=== PATIENT | male | born 1950 | race Caucasian/White ===

== ENCOUNTER 2017-09-14 21:03 | Emergency (ER) | payer MEDICARE ==
[~2017-09-14] VITALS: Ht 175.3 cm; Wt 101.2 kg
[~2017-09-14 21:03] MED LIST: ASPI81CH PO; Aspir-Trin325 MG PO; BLOOD GLUCOSE; CLOP75 PO; GABA300 PO; GLIP5 PO; LISI5 PO; METF500 PO; METO25 PO; Nitrostat0.4 MG SL; Simvastatin10 MG PO
== END 2017-09-14 21:58 | disposition left against medical advice (07) ==
LOC: ER 21:03
DX: Z53.21 Procedure and treatment not carried out due to patient leaving prior to being seen by health care provider (principal)

== ENCOUNTER 2020-11-18 11:39 | Emergency (ER) | payer MEDICARE ==
[~2020-11-18] VITALS: Ht 175.3 cm; Wt 93.9 kg
[~2020-11-18 11:39] MED LIST changes: -ASPI81CH PO; +Aspir 8181 MG PO
[2020-11-18 14:16] LABS: BASOPHILS ABSOLUTE AUTO 0.02 K/mm3 (0.00-0.23); BASOPHILS PERCENT AUTO 0 % (0-2); EOSINOPHILS PERCENT AUTO 0 % (0-6); Hematocrit 41.1 % (37.0-53.0); Hemoglobin 13.9 g/dL (13.5-17.5); IMMATURE GRAN ABSOLUTE AUTO 0.04 K/mm3 (0.00-0.10); IMMATURE GRAN PERCENT AUTO 1 % (0-1); LYMPHOCYTES ABSOLUTE AUTO 1.16 K/mm3 (0.84-5.20); LYMPHOCYTES PERCENT AUTO 16 % (21-46); MONOCYTES ABSOLUTE AUTO 0.36 K/mm3 (0.16-1.47); MONOCYTES PERCENT AUTO 5 % (4-13); Mean Corpuscular HGB Conc 33.8 g/dL (31.5-36.5); Mean Corpuscular Volume 86 fL (80-100); NEUTROPHILS ABSOLUTE AUTO 5.75 K/mm3 (1.96-9.15); NEUTROPHILS PERCENT AUTO 79 % (41-73); Platelet Count 168 K/mm3 (150-400); RDW Coefficient Variation 12.6 % (11.7-14.2); RDW Standard Deviation 39.5 fL (35.1-46.3); White Blood Cell Count 7.33 K/mm3 (4.00-11.30)
[2020-11-18 14:36] LABS: Alanine Aminotransfer (ALT/SGP 45 U/L (12-78); Albumin, Blood 3.2 g/dL (3.4-5.0); Albumin/Globulin Ratio 0.8 (0.8-1.8); Alk Phos 47 U/L (50-136); Anion Gap 9 mmol/L (6-16); Aspartate Aminotrans (AST/SGOT 44 U/L (12-37); Bilirubin, Total 0.7 mg/dL (0.1-1.0); Blood Urea Nitrogen 11 mg/dL (8-24); Bun/Creatinine Ratio 12.6 (12.0-20.0); CO2, Blood 25 mmol/L (21-32); Calcium, Blood 7.9 mg/dL (8.5-10.1); Chloride, Blood 96 mmol/L (98-108); Creatinine, Blood 0.87 mg/dL (0.60-1.20); Globulin, Blood 4.2 g/dL (2.2-4.0); Glomerular Filtration Rate >60 (60-); Glucose, Blood 285 mg/dL (70-99); Potassium, Blood 4.4 mmol/L (3.5-5.5); Sodium, Blood 130 mmol/L (136-145); Total Protein, Blood 7.4 g/dL (6.4-8.2)
[2020-11-18 14:40] LABS: Magnesium, Blood 1.7 mg/dL (1.6-2.4); Troponin I <0.015 ng/mL (0.000-0.040)
[2020-11-18] MEDS ORDERED: ONDA4ODT MM (15:07)
[2020-11-19] MEDS ORDERED: ATOR40TA PO (20:40)
[2020-11-19] MEDS ORDERED: GLIP10ER PO (20:40)
[2020-11-19] MEDS ORDERED: SITA100T2 PO (20:42)
== END 2020-11-18 16:00 | disposition home or self-care (01) ==
LOC: ER 11:39
PROVIDERS: Emergency Medicine; Student in an Organized Health Care Education/Training Program
DX: U07.1 COVID-19 (principal); E86.0 Dehydration; G47.33 Obstructive sleep apnea (adult) (pediatric); Z79.899 Other long term (current) drug therapy; Z79.84 Long term (current) use of oral hypoglycemic drugs; Z79.82 Long term (current) use of aspirin
CPT/HCPCS: 36415; 71045; 80053; 83735; 84484; 85025; 93005; 93010; 96374; 99284-25; J2405; J7030

== ENCOUNTER 2020-11-19 18:32 | Inpatient (IN) | payer MEDICARE ==
[~2020-11-19] VITALS: Ht 175.3 cm; Wt 93.2 kg
[~2020-11-19 18:32] MED LIST changes: +ONDA4ODT MM
[2020-11-19 19:12] LABS: Hematocrit 35.6 % (37.0-53.0); Mean Corpuscular HGB 28.6 pg (26.0-34.0); Mean Corpuscular HGB Conc 33.7 g/dL (31.5-36.5); Mean Corpuscular Volume 85 fL (80-100); Mean Platelet Volume 10.1 fL (9.1-12.4); Platelet Count 193 K/mm3 (150-400); RDW Standard Deviation 39.8 fL (35.1-46.3); Red Blood Cell Count 4.19 M/mm3 (4.30-5.90); White Blood Cell Count 9.55 K/mm3 (4.00-11.30)
[2020-11-19 19:36] LABS: BAND PERCENT MAN 1 % (0-8); BASOPHILS PERCENT MAN 0 % (0-2); EOSINOPHILS PERCENT MAN 0 % (0-6); LYMPHOCYTES % ATYPICAL MANUAL 2 % (0-0); LYMPHOCYTES ABSOLUTE MAN 1.52 K/mm3 (0.84-5.20); LYMPHOCYTES PERCENT MAN 14 % (21-46); MONOCYTES ABSOLUTE MAN 0.38 K/mm3 (0.16-1.47); MONOCYTES PERCENT MAN 4 % (4-13); NEUTROPHILS ABSOLUTE MAN 7.64 K/mm3 (1.96-9.15); SEG NEUTROPHILS PERCENT MAN 79 % (41-73); TOTAL CELLS COUNTED 100
[2020-11-19 19:40] LABS: Alanine Aminotransfer (ALT/SGP 36 U/L (12-78); Albumin, Blood 2.7 g/dL (3.4-5.0); Albumin/Globulin Ratio 0.7 (0.8-1.8); Alk Phos 38 U/L (50-136); Anion Gap 10 mmol/L (6-16); Aspartate Aminotrans (AST/SGOT 33 U/L (12-37); Bilirubin, Total 0.6 mg/dL (0.1-1.0); Blood Urea Nitrogen 15 mg/dL (8-24); Bun/Creatinine Ratio 16.2 (12.0-20.0); CO2, Blood 23 mmol/L (21-32); Calcium, Blood 7.9 mg/dL (8.5-10.1); Chloride, Blood 96 mmol/L (98-108); Creatinine, Blood 0.92 mg/dL (0.60-1.20); Globulin, Blood 3.7 g/dL (2.2-4.0); Glomerular Filtration Rate >60 (60-); Glucose, Blood 296 mg/dL (70-99); Sodium, Blood 129 mmol/L (136-145); Total Protein, Blood 6.4 g/dL (6.4-8.2)
[2020-11-19] MEDS ORDERED: ATOR40TA PO (20:40)
[2020-11-19] MEDS ORDERED: GLIP10ER PO (20:40)
[2020-11-19] MEDS ORDERED: SITA100T2 PO (20:42)
--- NOTE | 2020-11-19 23:50 | NUR ---
TRANSFER NOTE REPORT FROM ILDEFONSO POWERS RN. PT BROUGHT TO ROOM BY PEDRO ON 6L BY TANK. PT ORIENTED TO UNIT AND ROOM. CALL LIGHT WITHIN REACH. ISOLATION MAINTAINED.
[2020-11-20 05:21] LABS: Hematocrit 36.5 % (37.0-53.0); Hemoglobin 12.4 g/dL (13.5-17.5); Mean Corpuscular HGB 28.6 pg (26.0-34.0); Mean Corpuscular Volume 84 fL (80-100); Mean Platelet Volume 9.9 fL (9.1-12.4); Platelet Count 203 K/mm3 (150-400); RDW Coefficient Variation 12.6 % (11.7-14.2); RDW Standard Deviation 38.9 fL (35.1-46.3); Red Blood Cell Count 4.34 M/mm3 (4.30-5.90); White Blood Cell Count 8.99 K/mm3 (4.00-11.30)
[2020-11-20 05:41] LABS: Alanine Aminotransfer (ALT/SGP 38 U/L (12-78); Albumin, Blood 2.5 g/dL (3.4-5.0); Albumin/Globulin Ratio 0.6 (0.8-1.8); Alk Phos 40 U/L (50-136); Anion Gap 12 mmol/L (6-16); Aspartate Aminotrans (AST/SGOT 35 U/L (12-37); Bilirubin, Total 0.6 mg/dL (0.1-1.0); Blood Urea Nitrogen 17 mg/dL (8-24); Bun/Creatinine Ratio 20.8 (12.0-20.0); CO2, Blood 21 mmol/L (21-32); Chloride, Blood 97 mmol/L (98-108); Creatinine, Blood 0.82 mg/dL (0.60-1.20); Glomerular Filtration Rate >60 (60-); Glucose, Blood 328 mg/dL (70-99); Potassium, Blood 4.5 mmol/L (3.5-5.5); Sodium, Blood 130 mmol/L (136-145); Total Protein, Blood 6.5 g/dL (6.4-8.2)
--- NOTE | 2020-11-20 05:43 | NUR ---
SHIFT SUMMARY ADMITTED FOR HYPOXEMIA AND RESPIRATORY FAILURE SECONDARY TO COVID-19. PT IS FULL CODE. PT HAD A BLOOD SUGAR OF 398 ON ARRIVAL TO THE FLOOR. HOSPITALIST CONTACTED AT THAT TIME AND AN ORDER FOR ONE TIME MEDIUM CS HUMALOG OBTAINED. PT SATTING AT 80-83% ON 6L NC DURING SLEEP. PT REPORTS HX OF SLEEP APNEA SO RESPIRATORY CARE CONSULTED. PT PUT ON 13L BY OXIMIZER WITH SATURATION AT 86%. PT PLACED ON CPAP FOR THE REST OF THE NIGHT WITH IMPROVEMENT INTO THE 90S. REQUESTED CONTINUOUS BIOX. PT HAS NO COMPLAINTS OF SOB OR DISCOMFORT. PT RESTING AT THIS TIME.
--- NOTE | 2020-11-20 06:50 | NUR ---
RESPIRATORY PT REQUESTING TO BE TAKEN OFF CPAP SINCE HE IS DONE SLEEPING. RESPIRATORY THERAPIST WAS CONSULTED AND DUE TO PT'S LOW SATURATION AT NIGHT, IT WAS RECOMMENDED THAT HE CONTINUE TO WEAR CPAP MASK AND BE RE-EVALUATED BY DAY SHIFT RT.
[2020-11-20 07:06] LABS: BAND PERCENT MAN 9 % (0-8); BASOPHILS PERCENT MAN 0 % (0-2); EOSINOPHILS PERCENT MAN 0 % (0-6); LYMPHOCYTES ABSOLUTE MAN 0.53 K/mm3 (0.84-5.20); LYMPHOCYTES PERCENT MAN 6 % (21-46); MONOCYTES ABSOLUTE MAN 0.35 K/mm3 (0.16-1.47); MONOCYTES PERCENT MAN 4 % (4-13); NEUTROPHILS ABSOLUTE MAN 8.09 K/mm3 (1.96-9.15); SEG NEUTROPHILS PERCENT MAN 81 % (41-73); TOTAL CELLS COUNTED 100
--- NOTE | 2020-11-20 17:06 | NUR ---
SHIFT SUMMARY PT IS AOX4. PT DENIES PAIN, N/V, SOB. PT SATS GREATER THAN 90% ON 12 L VIA OXYMIZER. PT WEARS CPAP AT NIGHT. PT IS SBA IN ROOM. PT APPETITE IS GOOD. ENHANCED ISOLATION PRECUATIONS MAINTAINED T/O SHIFT. PT IS IN BED, CALL LIGHT IN REACH, BED IN LOW POSITION.
--- NOTE | 2020-11-20 22:04 | NUR ---
PT CBG OF 366. HOSPITALIST CONTACTED. PT TO BE GIVEN NIGHTLY SEMGLEE AND SUGAR CHECKED IN TWO HOURS.
--- NOTE | 2020-11-21 05:33 | NUR ---
STABLE ATTENDANT SUMMARY ADMITTED FOR SUPPORTIVE OXYGEN THERAPY DURING COVID. PT IS FULL CODE. PT HAS BEEN SLEEPING ON CPAP AND SATURATING AT 92-98%. NO COMPLAINTS DURING THIS SHIFT. ISOLATION MAINTAINED.
[2020-11-21 06:11] LABS: BASOPHILS ABSOLUTE AUTO 0.02 K/mm3 (0.00-0.23); BASOPHILS PERCENT AUTO 0 % (0-2); EOSINOPHILS PERCENT AUTO 0 % (0-6); Hematocrit 38.5 % (37.0-53.0); IMMATURE GRAN ABSOLUTE AUTO 0.13 K/mm3 (0.00-0.10); IMMATURE GRAN PERCENT AUTO 1 % (0-1); LYMPHOCYTES ABSOLUTE AUTO 1.19 K/mm3 (0.84-5.20); LYMPHOCYTES PERCENT AUTO 11 % (21-46); MONOCYTES ABSOLUTE AUTO 0.65 K/mm3 (0.16-1.47); MONOCYTES PERCENT AUTO 6 % (4-13); Mean Corpuscular HGB 28.3 pg (26.0-34.0); Mean Corpuscular HGB Conc 33.8 g/dL (31.5-36.5); Mean Corpuscular Volume 84 fL (80-100); Mean Platelet Volume 10.2 fL (9.1-12.4); NEUTROPHILS ABSOLUTE AUTO 9.18 K/mm3 (1.96-9.15); NEUTROPHILS PERCENT AUTO 82 % (41-73); Platelet Count 272 K/mm3 (150-400); RDW Coefficient Variation 12.5 % (11.7-14.2); RDW Standard Deviation 38.2 fL (35.1-46.3); Red Blood Cell Count 4.59 M/mm3 (4.30-5.90); White Blood Cell Count 11.17 K/mm3 (4.00-11.30)
[2020-11-21 06:50] LABS: Alanine Aminotransfer (ALT/SGP 35 U/L (12-78); Albumin, Blood 2.6 g/dL (3.4-5.0); Albumin/Globulin Ratio 0.6 (0.8-1.8); Alk Phos 43 U/L (50-136); Anion Gap 9 mmol/L (6-16); Aspartate Aminotrans (AST/SGOT 38 U/L (12-37); Bilirubin, Total 0.5 mg/dL (0.1-1.0); Blood Urea Nitrogen 23 mg/dL (8-24); Bun/Creatinine Ratio 30.5 (12.0-20.0); CO2, Blood 24 mmol/L (21-32); Calcium, Blood 8.1 mg/dL (8.5-10.1); Chloride, Blood 98 mmol/L (98-108); Creatinine, Blood 0.75 mg/dL (0.60-1.20); Globulin, Blood 4.2 g/dL (2.2-4.0); Glomerular Filtration Rate >60 (60-); Glucose, Blood 295 mg/dL (70-99); Potassium, Blood 4.6 mmol/L (3.5-5.5); Sodium, Blood 131 mmol/L (136-145); Total Protein, Blood 6.8 g/dL (6.4-8.2)
--- NOTE | 2020-11-21 13:52 | NUR ---
Update 11/21/2020: Per chart review, pt. remains on BiPAP with supplemental oxygen. Prior to admission pt. residing at home with . Dependent upon hospital course, pt. could potentially need PT/OT eval and additional support or SNF. Per request from Dr. Leung, I talked with palliative care nurse Oksana today to request their involvement moving forward based on new finding of lung mass. Pt. will need outpatient PET CT and Ct. guided biopsy per chart notes. Plan to continue to follow patient's progress during hospitalization and assist with discharge planning and care coordination as needed. Anticipated needs at time of discharge to include: O2 (based on need and home O2 eval), samples of Xarelto/Elquis, HH or SNF (PT/OT recommendations), hospital F/U within 5-7 days, outpatient imaging as mentioned above, F/U visit with oncology.
--- NOTE | 2020-11-21 18:25 | NUR ---
SHIFT SUMMARY PT IS AO. PT IS ON 12 L OXYMIZER WITH SATS GREATER THAN 90%. PT DENIES PAIN, N/V, SOB. PT APPETITE IS GOOD. ENHANCED ISOLATION PRECAUTIONS MAINTAINED T/O SHIFT. PT IS SBA TO ROOM. PT IS IN BED, CALL LIGHT IN REACH, LOW POSITION.
[2020-11-22 05:32] LABS: Albumin, Blood 2.4 g/dL (3.4-5.0); Anion Gap 7 mmol/L (6-16); Blood Urea Nitrogen 26 mg/dL (8-24); Bun/Creatinine Ratio 32.4 (12.0-20.0); CO2, Blood 28 mmol/L (21-32); Calcium, Blood 7.8 mg/dL (8.5-10.1); Chloride, Blood 97 mmol/L (98-108); Glomerular Filtration Rate >60 (60-); Glucose, Blood 261 mg/dL (70-99); Phosphorus, Blood 3.9 mg/dL (2.5-4.9); Potassium, Blood 4.8 mmol/L (3.5-5.5); Sodium, Blood 132 mmol/L (136-145)
--- NOTE | 2020-11-22 07:22 | NUR ---
SHIFT SUMMARY PATIENT ALERT AND ORIENTED. HAD NO COMPLAINTS OF PAIN OR SHORTNESS OF BREATH. O2 INCREASED TO 15 LITERS VIA OXYMIZER AND 15 LITERS VIA NRB WHEN AWAKE. PATIENT ON CPAP WHEN SLEEPING. CALL LIGHT WITHIN REACH. REPORT GIVEN TO ONCOMING RN.
--- NOTE | 2020-11-22 14:43 | NUR ---
PT IS AO X 3 PT IS BED, PT DENIES PAIN, N/V, SOB, PT IS REMAINING ON 15L,O2 SATURATION IS 93%, PT WEAR CPAP AT NIGHT WHEN SLEEPING, BED IN LOW POSITON, CALL LIGHT WITHIN REACH.
--- NOTE | 2020-11-23 07:26 | NUR ---
SHIFT SUMMARY PATIENT ALERT AND ORIENTED. HAD NO COMPLAINTS OF PAIN OR SHORTNESS OF BREATH. NO ACUTE ISSUES NOTED. CALL LIGHT WITHIN REACH. REPORT GIVEN TO ONCOMING RN.
--- NOTE | 2020-11-23 18:15 | NUR ---
PT IS AO,PT IS COVID POSITIVE, STILL REMAINING ON 15L VIA OXYMIZER HUMIDIFY,PT WEAR CPAP AT NIGHT,PT IS STANDBY ASSIST,PT STTING ON SIDE OF BED, BED IN LOW POSITION, CALL WITHIN REACH.
[2020-11-24 04:51] LABS: Hematocrit 41.3 % (37.0-53.0); Hemoglobin 14.1 g/dL (13.5-17.5); Mean Corpuscular HGB 28.4 pg (26.0-34.0); Mean Corpuscular HGB Conc 34.1 g/dL (31.5-36.5); Mean Corpuscular Volume 83 fL (80-100); Platelet Count 353 K/mm3 (150-400); RDW Coefficient Variation 12.3 % (11.7-14.2); RDW Standard Deviation 37.4 fL (35.1-46.3); Red Blood Cell Count 4.97 M/mm3 (4.30-5.90); White Blood Cell Count 16.06 K/mm3 (4.00-11.30)
[2020-11-24 05:19] LABS: Albumin, Blood 2.6 g/dL (3.4-5.0); Anion Gap 6 mmol/L (6-16); Blood Urea Nitrogen 21 mg/dL (8-24); Bun/Creatinine Ratio 29.7 (12.0-20.0); CO2, Blood 28 mmol/L (21-32); Calcium, Blood 8.6 mg/dL (8.5-10.1); Chloride, Blood 99 mmol/L (98-108); Creatinine, Blood 0.71 mg/dL (0.60-1.20); Glomerular Filtration Rate >60 (60-); Glucose, Blood 285 mg/dL (70-99); Magnesium, Blood 2.4 mg/dL (1.6-2.4); Potassium, Blood 4.4 mmol/L (3.5-5.5); Sodium, Blood 133 mmol/L (136-145)
[2020-11-24 05:45] LABS: BAND PERCENT MAN 1 % (0-8); BASOPHILS PERCENT MAN 0 % (0-2); EOSINOPHILS PERCENT MAN 0 % (0-6); LYMPHOCYTES ABSOLUTE MAN 2.08 K/mm3 (0.84-5.20); LYMPHOCYTES PERCENT MAN 13 % (21-46); MONOCYTES PERCENT MAN 5 % (4-13); MYELOCYTE ABSOLUTE MAN 0.16 K/mm3 (0.00-0.00); MYELOCYTE PERCENT MAN 1 % (0-0); SEG NEUTROPHILS PERCENT MAN 80 % (41-73); TOTAL CELLS COUNTED 100
--- NOTE | 2020-11-24 06:45 | NUR ---
SHIFT SUMMARY PATIENT ALERT AND ORIENTED. HAD NO COMPLAINTS OF PAIN OR SHORTNESS OF BREATH. NO ACUTE ISSUES NOTED OVERNIGHT. CALL LIGHT WITHIN REACH. REPORT GIVEN TO ONCOMING RN.
--- NOTE | 2020-11-24 18:01 | NUR ---
PT CBG 482. DR. FREY NOTIFIED. TO RECEIVED 10 GIVE 10 UNITS IN ADDITION TO 15 UNITS AT DINNER TIME TO EQUAL 25 UNITS. NOT NEED TO RECHECK CBG UNTIL BEDTIME. ORDER PROCESSED.
--- NOTE | 2020-11-24 19:55 | NUR ---
SHIFT SUMMARY: PT A/O X 3. PT HAD TO SWITCH TO BIPAP THIS AM DUE TO SATS RUNNING LOW 70'S THIS AM ON OXIMIZER. PT HAS TOLERATED BIPAP WELL. PT SWITCHED TO HIGH FLOW AT 15 LPM FOR SHORT TIME DURING DINNER SO HE COULD EAT AND SATS DROPPED TO 81%. PT ALSO HAD HIGH CBG AT DINNER OF 482 AND WAS GIVEN EXTRA 10 UNITS OF HUMLIN R PER MD ORDER. NO OTHER ACUTE CONCERNS.
--- NOTE | 2020-11-24 22:03 | NUR ---
HOSPITALIST CONTACTED REGARDING PT'S CBG OF 369. PT HAS ALREADY BEEN GIVEN 6 UNITS OF HUMULIN REGULAR AND 30 UNITS OF SEMGLEE. HOSPITALIST AGREES WITH TREATMENT. NO CHANGES AT THIS TIME.
--- NOTE | 2020-11-25 04:42 | NUR ---
SHIFT SUMMARY ADMITTED FOR OXYGEN THERAPY DUE TO COVID. FULL CODE. PT CONTINUES TO SATURATE IN THE HIGH 90S ON CPAP AT [facility]. PT'S OSTOMY BAG HAD A LEAK AND A NEW APPLIANCE WAS PLACED. PT CBG OF 369 AT TIME OF NIGHT MEDICATIONS - HOSPITALIST CONTACTED AT THAT TIME AND NO CHANGES WERE MADE. NO OTHER CONCERNS THIS SHIFT. ISOLATION MAINTAINED. CALL LIGHT WITHIN REACH.
[2020-11-25 05:03] LABS: Hematocrit 40.3 % (37.0-53.0); Hemoglobin 13.5 g/dL (13.5-17.5); Mean Corpuscular HGB Conc 33.5 g/dL (31.5-36.5); Mean Corpuscular Volume 83 fL (80-100); Mean Platelet Volume 9.8 fL (9.1-12.4); NRBC ABSOLUTE 0.02 K/mm3 (0.00-0.02); NRBC Auto 0.1 /100 WBC (0.0-0.2); Platelet Count 362 K/mm3 (150-400); RDW Coefficient Variation 12.5 % (11.7-14.2); RDW Standard Deviation 37.8 fL (35.1-46.3); Red Blood Cell Count 4.83 M/mm3 (4.30-5.90); White Blood Cell Count 13.43 K/mm3 (4.00-11.30)
[2020-11-25 05:33] LABS: Alanine Aminotransfer (ALT/SGP 40 U/L (12-78); Albumin, Blood 2.5 g/dL (3.4-5.0); Albumin/Globulin Ratio 0.7 (0.8-1.8); Alk Phos 82 U/L (50-136); Anion Gap 6 mmol/L (6-16); Aspartate Aminotrans (AST/SGOT 25 U/L (12-37); Bilirubin, Total 0.6 mg/dL (0.1-1.0); Blood Urea Nitrogen 20 mg/dL (8-24); Bun/Creatinine Ratio 27.6 (12.0-20.0); CO2, Blood 31 mmol/L (21-32); Calcium, Blood 8.5 mg/dL (8.5-10.1); Chloride, Blood 96 mmol/L (98-108); Creatinine, Blood 0.73 mg/dL (0.60-1.20); Globulin, Blood 3.7 g/dL (2.2-4.0); Glomerular Filtration Rate >60 (60-); Glucose, Blood 244 mg/dL (70-99); Potassium, Blood 4.6 mmol/L (3.5-5.5); Sodium, Blood 133 mmol/L (136-145); Total Protein, Blood 6.2 g/dL (6.4-8.2)
[2020-11-25 06:06] LABS: BAND PERCENT MAN 3 % (0-8); BASOPHILS PERCENT MAN 0 % (0-2); EOSINOPHILS PERCENT MAN 0 % (0-6); LYMPHOCYTES ABSOLUTE MAN 1.34 K/mm3 (0.84-5.20); LYMPHOCYTES PERCENT MAN 10 % (21-46); METAMYELOCYTE PERCENT MAN 3 % (0-0); MONOCYTES ABSOLUTE MAN 0.67 K/mm3 (0.16-1.47); MONOCYTES PERCENT MAN 5 % (4-13); MYELOCYTE PERCENT MAN 3 % (0-0); SEG NEUTROPHILS PERCENT MAN 76 % (41-73); TOTAL CELLS COUNTED 100
--- NOTE | 2020-11-25 10:45 | NUR ---
Late entry copied from [facility] EMR 11/22/20 UPDATE 11/22/20: PT. CONTINUES TO NEED HIGH FLOW O2. NOTES IN HIS CHART THAT HE HAS SELF ADJUSTED HIS OXYGEN. IT WAS REQUESTED THAT HE NO LONGER MURO THAT. PALLIATIVE CARE WAS ASKED TO BE INVOLVED IN HIS CARE DUE TO NEW FINDING OF A MASS AND HISTORY OF CANCER.
--- NOTE | 2020-11-25 16:21 | NUR ---
11/25/20- pt still not stable for d/c. O2 demand too high. Incidental finding of pulmonary nodule. Not sure if this is primary CA or mets from previous colon cancer. Once COVID infection clears, recommendation is for PET scan. No discharge plan discussed today. -avelino
--- NOTE | 2020-11-25 18:16 | NUR ---
SHIFT SUMMARY: PT CONTINUES TO BE ON BIPAP WITH O2 SATS BETWEEN 93-96%. WHEN OFF BIPAP FOR MEALS O2 SATS DROP TO 80'S. PT HAS HAD NO SIGNIFICANT CHANGES TODAY.
--- NOTE | 2020-11-26 04:24 | NUR ---
CONCRETE MIXER OPERATOR HELPER SUMMARY ADMITTED FOR COVID. PT IS FULL CODE. PT HAS BEEN ON THE CPAP ALL NIGHT WITH SATURATION ABOVE 93%. NO COMPLAINTS FROM THE PT. NO OTHER CONCERNS THIS SHIFT. ISOLATION MAINTAINED.
[2020-11-26 05:10] LABS: BASOPHILS ABSOLUTE AUTO 0.09 K/mm3 (0.00-0.23); BASOPHILS PERCENT AUTO 1 % (0-2); EOSINOPHILS ABSOLUTE AUTO 0.02 K/mm3 (0.00-0.68); EOSINOPHILS PERCENT AUTO 0 % (0-6); Hematocrit 41.8 % (37.0-53.0); Hemoglobin 13.8 g/dL (13.5-17.5); IMMATURE GRAN ABSOLUTE AUTO 1.62 K/mm3 (0.00-0.10); IMMATURE GRAN PERCENT AUTO 9 % (0-1); LYMPHOCYTES ABSOLUTE AUTO 1.29 K/mm3 (0.84-5.20); LYMPHOCYTES PERCENT AUTO 7 % (21-46); MONOCYTES ABSOLUTE AUTO 0.56 K/mm3 (0.16-1.47); MONOCYTES PERCENT AUTO 3 % (4-13); Mean Corpuscular HGB 27.8 pg (26.0-34.0); Mean Corpuscular Volume 84 fL (80-100); Mean Platelet Volume 10.1 fL (9.1-12.4); NEUTROPHILS ABSOLUTE AUTO 13.79 K/mm3 (1.96-9.15); NEUTROPHILS PERCENT AUTO 80 % (41-73); Platelet Count 396 K/mm3 (150-400); RDW Coefficient Variation 12.5 % (11.7-14.2); RDW Standard Deviation 37.6 fL (35.1-46.3); Red Blood Cell Count 4.97 M/mm3 (4.30-5.90); White Blood Cell Count 17.37 K/mm3 (4.00-11.30)
[2020-11-26 05:36] LABS: Alanine Aminotransfer (ALT/SGP 43 U/L (12-78); Albumin, Blood 2.5 g/dL (3.4-5.0); Albumin/Globulin Ratio 0.7 (0.8-1.8); Alk Phos 78 U/L (50-136); Anion Gap 4 mmol/L (6-16); Aspartate Aminotrans (AST/SGOT 26 U/L (12-37); Bilirubin, Total 0.5 mg/dL (0.1-1.0); Blood Urea Nitrogen 23 mg/dL (8-24); Bun/Creatinine Ratio 31.3 (12.0-20.0); CO2, Blood 31 mmol/L (21-32); Calcium, Blood 8.5 mg/dL (8.5-10.1); Chloride, Blood 96 mmol/L (98-108); Creatinine, Blood 0.73 mg/dL (0.60-1.20); Globulin, Blood 3.7 g/dL (2.2-4.0); Glomerular Filtration Rate >60 (60-); Glucose, Blood 275 mg/dL (70-99); Potassium, Blood 4.8 mmol/L (3.5-5.5); Sodium, Blood 131 mmol/L (136-145); Total Protein, Blood 6.2 g/dL (6.4-8.2)
[2020-11-26 06:49] LABS: BAND PERCENT MAN 4 % (0-8); BASOPHILS PERCENT MAN 0 % (0-2); EOSINOPHILS ABSOLUTE MAN 0.17 K/mm3 (0.00-0.68); EOSINOPHILS PERCENT MAN 1 % (0-6); LYMPHOCYTES ABSOLUTE MAN 0.69 K/mm3 (0.84-5.20); LYMPHOCYTES PERCENT MAN 4 % (21-46); METAMYELOCYTE ABSOLUTE MAN 0.52 K/mm3 (0.00-0.00); METAMYELOCYTE PERCENT MAN 3 % (0-0); MONOCYTES ABSOLUTE MAN 0.17 K/mm3 (0.16-1.47); MONOCYTES PERCENT MAN 1 % (4-13); MYELOCYTE ABSOLUTE MAN 0.17 K/mm3 (0.00-0.00); MYELOCYTE PERCENT MAN 1 % (0-0); NEUTROPHILS ABSOLUTE MAN 15.63 K/mm3 (1.96-9.15); SEG NEUTROPHILS PERCENT MAN 86 % (41-73); TOTAL CELLS COUNTED 100
--- NOTE | 2020-11-26 13:13 | NUR ---
400 BLOOD SUGAR PT HAD AN MIDDAY BLOOD SUGAR OF 400. 15 UNITS OF REGULAR INSULIN GIVEN ORDERED. DR. FREY NOTIFIED ADN AN EXTRA ONE TIME DOSE OF 15 UNITS OF REGULAR INSULIN WAS ORDERED.
--- NOTE | 2020-11-26 15:12 | NUR ---
11/26/20- day 6 of being hospitalized. Pt currently on 15L supplemental oxygen and CPAP. Pt appears to be having trouble with controlling DM. No d/c plan at this time, pt needs to be more stable medically. -kjb
--- NOTE | 2020-11-26 19:37 | NUR ---
SHIFT SUMMARY PT A/O X4 AND ABLE TO MAKE NEEDS KNOWN. ADMITTED FOR COVID AND ON BIPAP EXCEPT FOR EATING. DURING MEALS HE IS ON HIGH FLOW AT [address] VSS. WILL REPORT TO ONCOMING RN.
[2020-11-27 05:33] LABS: Hemoglobin 13.3 g/dL (13.5-17.5); Mean Corpuscular HGB 28.5 pg (26.0-34.0); Mean Corpuscular HGB Conc 34.1 g/dL (31.5-36.5); Mean Corpuscular Volume 84 fL (80-100); Mean Platelet Volume 10.2 fL (9.1-12.4); Platelet Count 357 K/mm3 (150-400); RDW Coefficient Variation 12.5 % (11.7-14.2); Red Blood Cell Count 4.66 M/mm3 (4.30-5.90); White Blood Cell Count 16.87 K/mm3 (4.00-11.30)
[2020-11-27 05:56] LABS: BAND PERCENT MAN 6 % (0-8); BASOPHILS PERCENT MAN 0 % (0-2); EOSINOPHILS PERCENT MAN 0 % (0-6); LYMPHOCYTES ABSOLUTE MAN 1.18 K/mm3 (0.84-5.20); LYMPHOCYTES PERCENT MAN 7 % (21-46); MONOCYTES ABSOLUTE MAN 0.84 K/mm3 (0.16-1.47); MONOCYTES PERCENT MAN 5 % (4-13); NEUTROPHILS ABSOLUTE MAN 14.84 K/mm3 (1.96-9.15); SEG NEUTROPHILS PERCENT MAN 82 % (41-73); TOTAL CELLS COUNTED 100
[2020-11-27 05:58] LABS: Alanine Aminotransfer (ALT/SGP 37 U/L (12-78); Albumin, Blood 2.3 g/dL (3.4-5.0); Albumin/Globulin Ratio 0.7 (0.8-1.8); Alk Phos 66 U/L (50-136); Anion Gap 4 mmol/L (6-16); Aspartate Aminotrans (AST/SGOT 18 U/L (12-37); Bilirubin, Total 0.5 mg/dL (0.1-1.0); Blood Urea Nitrogen 25 mg/dL (8-24); CO2, Blood 29 mmol/L (21-32); Chloride, Blood 98 mmol/L (98-108); Creatinine, Blood 0.71 mg/dL (0.60-1.20); Globulin, Blood 3.4 g/dL (2.2-4.0); Glomerular Filtration Rate >60 (60-); Glucose, Blood 255 mg/dL (70-99); Potassium, Blood 4.6 mmol/L (3.5-5.5); Sodium, Blood 131 mmol/L (136-145); Total Protein, Blood 5.7 g/dL (6.4-8.2)
--- NOTE | 2020-11-27 13:04 | NUR ---
11/27/20- per chart review, no d/c plan at this time. Needs medical management for covid pneumonia. -albertb
--- NOTE | 2020-11-27 19:22 | NUR ---
SHIFT SUMMARY NO ACUTE CHANGES THIS SHIFT. SPOKE WITH RT AND RT FEELS THAT IT IS APPROPRIATE TO WEAN PT DOWN FROM BIPAP DURING THE DAY. PT WILL BE SWITCHED TO AIRVO WHEN ONE BECOMES AVAILABLE. OSTOMY APPLIANCE CHANGED THIS SHIFT. VSS. WILL REPORT TO ONCOMING RN.
--- NOTE | 2020-11-28 19:39 | NUR ---
PT QUITE PLEASANT TODAY. NO NEW CONCERNS NOTED. OSTOMY NOTED ON LEFT ABD. HE ON AIRVO AT 50L AND 60% FIO2. PT STATES FEELS OKAY, DR CHANGING HIS INSULIN ORDERS SOME TODAY. NO OTHER CONCERNS NOTED. BED IN LOW POSITION, CALLLITE IN REACH, CALLS APPROP
[2020-11-29 05:27] LABS: BASOPHILS ABSOLUTE AUTO 0.05 K/mm3 (0.00-0.23); BASOPHILS PERCENT AUTO 0 % (0-2); EOSINOPHILS ABSOLUTE AUTO 0.01 K/mm3 (0.00-0.68); EOSINOPHILS PERCENT AUTO 0 % (0-6); Hematocrit 39.6 % (37.0-53.0); Hemoglobin 13.4 g/dL (13.5-17.5); IMMATURE GRAN ABSOLUTE AUTO 0.83 K/mm3 (0.00-0.10); IMMATURE GRAN PERCENT AUTO 6 % (0-1); LYMPHOCYTES ABSOLUTE AUTO 1.02 K/mm3 (0.84-5.20); LYMPHOCYTES PERCENT AUTO 7 % (21-46); MONOCYTES ABSOLUTE AUTO 0.79 K/mm3 (0.16-1.47); MONOCYTES PERCENT AUTO 5 % (4-13); Mean Corpuscular HGB 28.5 pg (26.0-34.0); Mean Corpuscular HGB Conc 33.8 g/dL (31.5-36.5); Mean Corpuscular Volume 84 fL (80-100); NEUTROPHILS PERCENT AUTO 82 % (41-73); Platelet Count 315 K/mm3 (150-400); RDW Coefficient Variation 12.5 % (11.7-14.2); RDW Standard Deviation 38.1 fL (35.1-46.3); Red Blood Cell Count 4.71 M/mm3 (4.30-5.90)
[2020-11-29 06:07] LABS: Magnesium, Blood 1.9 mg/dL (1.6-2.4)
[2020-11-29 06:08] LABS: Alanine Aminotransfer (ALT/SGP 42 U/L (12-78); Albumin, Blood 2.2 g/dL (3.4-5.0); Albumin/Globulin Ratio 0.7 (0.8-1.8); Alk Phos 72 U/L (50-136); Anion Gap 4 mmol/L (6-16); Aspartate Aminotrans (AST/SGOT 17 U/L (12-37); Bilirubin, Total 0.4 mg/dL (0.1-1.0); Blood Urea Nitrogen 18 mg/dL (8-24); Bun/Creatinine Ratio 24.2 (12.0-20.0); CO2, Blood 29 mmol/L (21-32); Calcium, Blood 8.4 mg/dL (8.5-10.1); Chloride, Blood 99 mmol/L (98-108); Creatinine, Blood 0.74 mg/dL (0.60-1.20); Globulin, Blood 3.2 g/dL (2.2-4.0); Glomerular Filtration Rate >60 (60-); Glucose, Blood 340 mg/dL (70-99); Phosphorus, Blood 4.1 mg/dL (2.5-4.9); Potassium, Blood 4.6 mmol/L (3.5-5.5); Sodium, Blood 132 mmol/L (136-145); Total Protein, Blood 5.4 g/dL (6.4-8.2)
--- NOTE | 2020-11-29 18:28 | NUR ---
PT PLEASANT TODAY, HAS BEEN WATCHING TV FOOTBALL MOST ALL OF DAY. CONTINUES TO MAINTAIN SATS ON AIRVO. BED IN LOW POSITIOON, ACLL LITE IN REACH, CALLS APPROP
--- NOTE | 2020-11-30 04:41 | NUR ---
SHIFT SUMMARY PT HAD AN UNEVENTFUL NIGHT. SLEPT THROUGH MUCH OF THE NIGHT WHEN NOT BEING WOKEN BY STAFF. MOSTLY SLEPT ON HIS SIDE. 02 SATS REMAINED IN THE LOW 90'S ON AIRVO 45 L AND 70% FIO2. PT DENIES SOB OR PAIN. ONLY EXPRESSED HIS DESIRE TO RETURN HOME. PLEASANT AND COOPERATIVE. OSTOMY NOTED TO L ABD. SOFT BROWN STOOL PRESENT. VITAL SIGNS STABLE. NO ACUTE CHANGES THIS EVENING.
[2020-11-30 05:27] LABS: BASOPHILS ABSOLUTE AUTO 0.05 K/mm3 (0.00-0.23); BASOPHILS PERCENT AUTO 0 % (0-2); EOSINOPHILS ABSOLUTE AUTO 0.04 K/mm3 (0.00-0.68); EOSINOPHILS PERCENT AUTO 0 % (0-6); Hematocrit 40.8 % (37.0-53.0); Hemoglobin 13.9 g/dL (13.5-17.5); IMMATURE GRAN ABSOLUTE AUTO 0.69 K/mm3 (0.00-0.10); IMMATURE GRAN PERCENT AUTO 4 % (0-1); LYMPHOCYTES ABSOLUTE AUTO 1.25 K/mm3 (0.84-5.20); LYMPHOCYTES PERCENT AUTO 8 % (21-46); MONOCYTES ABSOLUTE AUTO 0.65 K/mm3 (0.16-1.47); MONOCYTES PERCENT AUTO 4 % (4-13); Mean Corpuscular HGB 28.5 pg (26.0-34.0); Mean Corpuscular HGB Conc 34.1 g/dL (31.5-36.5); Mean Corpuscular Volume 84 fL (80-100); Mean Platelet Volume 9.9 fL (9.1-12.4); NEUTROPHILS ABSOLUTE AUTO 13.43 K/mm3 (1.96-9.15); NEUTROPHILS PERCENT AUTO 83 % (41-73); Platelet Count 334 K/mm3 (150-400); RDW Coefficient Variation 12.7 % (11.7-14.2); RDW Standard Deviation 38.7 fL (35.1-46.3); Red Blood Cell Count 4.87 M/mm3 (4.30-5.90); White Blood Cell Count 16.11 K/mm3 (4.00-11.30)
--- NOTE | 2020-11-30 17:02 | NUR ---
PT PLEASANT TODAY. STATES HOPES TO GO HOME EARLY THIS NEXT WEEK. EXPLAINED LIKELY NOT WITH THE AIRVO, BUT MORE LIKELY WHEN CAN HOLD O2 TO MOVE FROM BED TO CHAIR ON 6L N/C. HE CONTINUES TO BE IN GOOD SPIRITS. NO NEW CONCERNS NOTED. BED IN LOW POSITION, CALL LITE IN REACH, CALLS APPROP
--- NOTE | 2020-12-01 04:32 | NUR ---
SHIFT SUMMARY PT HAD AN UNEVENTFUL NIGHT. REMAINED ON AIRVO AT 45L AND 75% FIO2. O2 SATS IN THE LOW 90'S THROUGHOUT THE NIGHT. PT DENIES ANY SOB. DENIES ANY PAIN OR NAUSEA. LUNG SOUNDS DIMINISHED. OSTOMY TO L ABD, BROWN SOFT STOOL PRESENT. PT USING URINAL WHILE IN BED. APPEARED TO SLEEP THROUGH MUCH OF THE NIGHT. VITAL SIGNS STABLE. WILL CONTINUE TO MONITOR.
--- NOTE | 2020-12-01 20:33 | NUR ---
a+o, changed ostomy bag, airvo, call light in reach, saline locked
--- NOTE | 2020-12-02 06:53 | NUR ---
SHIFT SUMMARY PATIENT ALERT AND ORIENTED. HAD NO COMPLAINTS OF PAIN OR SHORTNESS OF BREATH. NO ACUTE ISSUES NOTED. BED IN LOWEST POSITION WITH WHEELS LOCKED. CALL LIGHT WITHIN REACH. REPORT GIVEN TO ONCOMING RN.
--- NOTE | 2020-12-02 11:17 | NUR ---
Last Note : per chart review, pt has been in hospital for 13 days. Pt's need for O2 exceeds what can be provided in outpatient setting. Pt acknowledged this. Pt is currently on Airvo - 95 L, heated humid, [facility] [place], [place]. (will need this info for ordering home O2 at discharge.) ([email or web address], 11:16 AM)
--- NOTE | 2020-12-02 13:14 | NUR ---
per chart review, pt has been in hospital for 13 days. Pt's need for O2 exceeds what can be provided in outpatient setting. Pt acknowledged this. Pt is currently on Airvo - 95 L, heated humid, [place], [place]. (will need this info for ordering home O2 at discharge.) ([email or web address], 11:16 AM)
--- NOTE | 2020-12-02 16:46 | NUR ---
SHIFT SUMMARY PT IS A&O, PLEASANT AND CO-OP WITH CARE. ABLE TO MAKE NEEDS KNOWN. PT ON AIRVO AT 55L AT START OF SHIFT. RT IN TO ASSESS PT, REDUCING TO 45L THIS AM. PT HAS REMAINED STABLE. DR RAZO IN TO SEE PT THIS AM. PT WANTING TO GO HOME. GOAL IS TO WEAN PT OFF O2 OR REDUCE TO MANAGABLE RATE FOR PT TO GO HOME ON. PT'S CBG'S ELEVATED AT EACH CHK; SEE CHART. PT MEDICATED PER EMAR. OSTOMY TO LUQ; INTACT. APPLIANCE CHANGED YESTERDAY PER PT AND REPORT. CRACKLES TO R LOBES; L LOBES CTA. PT REPORTED HX DIABETIC NEUROPATHY TO BOTH FEET. INDEPENDENT IN RM AND TO BTHRM, USING URINAL AT BS. CALL LT IN REACH. DENIES FURTHER NEEDS AT THIS TIME.
--- NOTE | 2020-12-02 19:45 | NUR ---
ASSUMED CARE. DESATING AT 84% PER CONTINUOUS PULSE OX, PATIENT FOUND TALKING ON THE PHONE. DENIED FEELING SOB. AFTER HE STOPPED MOVING HIS HAND THE MACHINE PICKED UP A GOOD READY AT 92%. LUNG SOUNDS CLEAR ON THE LEFT, CRACKLES ON THE RIGHT LOWER. COUGH OCCATIONAL WHITE MUCUS PRODUCTION. DENIES PAIN OR DISCOMFORT. NUMBNESS TO BLE HIS NORMAL. ABLE TO USE URINAL AT BEDSIDE. MEDS GIVEN PER EMAR. NO NEEDS ARE NOTED. CALL LIGHT IN REACH.
--- NOTE | 2020-12-03 04:57 | NUR ---
SHIFT SUMMARY: LUNG SOUNDS WITH CRACKLES ON THE RLL. COUGH IS OCCATIONAL PRODUCTIVE OF THICK SMALL AMOUNT OF SECREATIONS. HELD SATS AT 92-93% ALL NIGHT ON AIRVO 45% O2. WAS ABLE TO HOLD FULL CONVERSATION WITH NO SOB. GOOD APPETITE. GOOD FLUID INTAKE. CLEAR YELLOW URINE. BS 258. OSTOMY APPLIANCE HELD. ENCOURAGED DEEP BREATHING AND MORE ACTIVITY TO BUILD ENDURANCE. WILL CONTINUE TO MONITOR. CALL LIGHT IN REACH.
--- NOTE | 2020-12-03 18:26 | NUR ---
SHIFT SUMMARY PATIENT IS ALERT AND ORIENTED X4 UP AD LID/ NO COMPLAINT OF PAIN. PATIENT DESTATED INTO THE LOW 70S AND WAS TACHYPENIC DURING SEWING PATTERN LAYOUT TECHNICIAN OF SHIFT. PATIENT OXYGEN WAS INCREASED TO 30L BY RESPIRATORY. PATIENT DESTAT WHEN TALKING ON PHONE OR EATING. PATIENT IN STABLE CONDITION NO COMPLAINTS.
--- NOTE | 2020-12-04 05:27 | NUR ---
SHIFT SUMMARY: VS WNL, AFEBRILE. NO PAIN. LS CLEAR DIMINISHED IN BASES. DECREASED AIRVO TO 30L = 60% FIO2, WITH A 50L FLOW. SATS HOLDING AT 92-94%. GOOD APPETITE. DOES NOT FOLLOW A DIABETIC DIET, EATS ALOT OF CARBS. BLOOD SUGAR IN THE 200'S NO COVERAGE GIVEN. NO OTHER CHANGES TO REPORT. CALL LIGHT IN REACH.
--- NOTE | 2020-12-04 07:28 | NUR ---
pt o2 titrated to 45 lpm, 60 fio2 by rt. o2 sats currently at 90%.
[2020-12-04 08:08] LABS: BASOPHILS ABSOLUTE AUTO 0.03 K/mm3 (0.00-0.23); BASOPHILS PERCENT AUTO 0 % (0-2); EOSINOPHILS ABSOLUTE AUTO 0.04 K/mm3 (0.00-0.68); EOSINOPHILS PERCENT AUTO 0 % (0-6); Hematocrit 40.8 % (37.0-53.0); Hemoglobin 13.6 g/dL (13.5-17.5); IMMATURE GRAN ABSOLUTE AUTO 0.49 K/mm3 (0.00-0.10); IMMATURE GRAN PERCENT AUTO 3 % (0-1); LYMPHOCYTES PERCENT AUTO 17 % (21-46); MONOCYTES ABSOLUTE AUTO 1.26 K/mm3 (0.16-1.47); MONOCYTES PERCENT AUTO 9 % (4-13); Mean Corpuscular HGB 28.3 pg (26.0-34.0); Mean Corpuscular HGB Conc 33.3 g/dL (31.5-36.5); Mean Corpuscular Volume 85 fL (80-100); NEUTROPHILS ABSOLUTE AUTO 10.59 K/mm3 (1.96-9.15); NEUTROPHILS PERCENT AUTO 71 % (41-73); Platelet Count 294 K/mm3 (150-400); White Blood Cell Count 14.91 K/mm3 (4.00-11.30)
[2020-12-04 09:03] LABS: Alanine Aminotransfer (ALT/SGP 53 U/L (12-78); Albumin, Blood 2.2 g/dL (3.4-5.0); Albumin/Globulin Ratio 0.8 (0.8-1.8); Alk Phos 64 U/L (50-136); Anion Gap 8 mmol/L (6-16); Aspartate Aminotrans (AST/SGOT 21 U/L (12-37); Bilirubin, Total 0.4 mg/dL (0.1-1.0); Blood Urea Nitrogen 19 mg/dL (8-24); Bun/Creatinine Ratio 27.7 (12.0-20.0); CO2, Blood 28 mmol/L (21-32); Chloride, Blood 100 mmol/L (98-108); Creatinine, Blood 0.69 mg/dL (0.60-1.20); Globulin, Blood 2.9 g/dL (2.2-4.0); Glomerular Filtration Rate >60 (60-); Glucose, Blood 128 mg/dL (70-99); Potassium, Blood 3.9 mmol/L (3.5-5.5); Sodium, Blood 136 mmol/L (136-145); Total Protein, Blood 5.1 g/dL (6.4-8.2)
--- NOTE | 2020-12-04 17:17 | NUR ---
SHIFT SUMMARY: PT A/O X 3 IND IN ROOM. PT CONTINUES TO BE ON AIRVO. PT FLOW INCREASED TO 50 LPM/60% FIO2 THIS AM. PT SATS ARE 86-90% AT THIS TIME. AT REST MAINTAINS AT 90%. PT HAS HAD NO ACUTE CHANGES THIS SHIFT.
--- NOTE | 2020-12-04 21:10 | NUR ---
ASSUMED CARE. STATES HE IS DOING GOOD. ABLE TO GET UP AND MOVE AROUND SOME WITH DROPPING TO MID 80'S ON HIS OXYGEN. CURRENTLY RUNNING 45L / 60% FIO2. SATS HOLDING 95%. NO PAIN. BLOOD SUGAR 245. VS WNL. AFEBRILE. LUNG SOUNDS CLEAR IN UPPER LOBES MILD COURSE IN BASES. ENCOURAGED COUGH, DEEP BREATHING, AND IS USE. CALL LIGHT IN REACH.
--- NOTE | 2020-12-05 04:11 | NUR ---
REPORT GIVEN LILIANA AYALA WHO WILL BE ASSUMING CARE.
--- NOTE | 2020-12-05 17:24 | NUR ---
SHIFT SUMMARY: PT A/O IND IN ROOM. PT CONTINUES TO BE ON AIRVO 45/60. LS COARS, NO COUGHING HEARD THROUGHOUT THE DAY. PT REPORTS NO COUGH. O2 SATS HAVE BEEN 91-92% AT REST. NO ACUTE CHANGES THIS SHIFT.
--- NOTE | 2020-12-05 18:52 | NUR ---
OSTOMY WAFER AND BAG CHANGED TODAY. SKIN IS CDI, STOMA OS RED, MOIST. NO CONCERNS AT THIS TIME.
[2020-12-06 04:54] LABS: BASOPHILS ABSOLUTE AUTO 0.03 K/mm3 (0.00-0.23); BASOPHILS PERCENT AUTO 0 % (0-2); EOSINOPHILS ABSOLUTE AUTO 0.01 K/mm3 (0.00-0.68); EOSINOPHILS PERCENT AUTO 0 % (0-6); Hematocrit 40.9 % (37.0-53.0); Hemoglobin 13.8 g/dL (13.5-17.5); IMMATURE GRAN ABSOLUTE AUTO 0.55 K/mm3 (0.00-0.10); IMMATURE GRAN PERCENT AUTO 4 % (0-1); LYMPHOCYTES ABSOLUTE AUTO 1.31 K/mm3 (0.84-5.20); LYMPHOCYTES PERCENT AUTO 9 % (21-46); MONOCYTES ABSOLUTE AUTO 0.46 K/mm3 (0.16-1.47); MONOCYTES PERCENT AUTO 3 % (4-13); Mean Corpuscular HGB 28.9 pg (26.0-34.0); Mean Corpuscular HGB Conc 33.7 g/dL (31.5-36.5); Mean Corpuscular Volume 86 fL (80-100); Mean Platelet Volume 9.8 fL (9.1-12.4); NEUTROPHILS ABSOLUTE AUTO 12.23 K/mm3 (1.96-9.15); NEUTROPHILS PERCENT AUTO 84 % (41-73); Platelet Count 291 K/mm3 (150-400); RDW Coefficient Variation 13.2 % (11.7-14.2); Red Blood Cell Count 4.78 M/mm3 (4.30-5.90); White Blood Cell Count 14.59 K/mm3 (4.00-11.30)
[2020-12-06 05:24] LABS: Alanine Aminotransfer (ALT/SGP 43 U/L (12-78); Albumin, Blood 2.4 g/dL (3.4-5.0); Albumin/Globulin Ratio 0.8 (0.8-1.8); Alk Phos 58 U/L (50-136); Anion Gap 6 mmol/L (6-16); Aspartate Aminotrans (AST/SGOT 16 U/L (12-37); Bilirubin, Total 0.4 mg/dL (0.1-1.0); Blood Urea Nitrogen 21 mg/dL (8-24); Bun/Creatinine Ratio 31.1 (12.0-20.0); CO2, Blood 27 mmol/L (21-32); Calcium, Blood 8.2 mg/dL (8.5-10.1); Chloride, Blood 101 mmol/L (98-108); Creatinine, Blood 0.68 mg/dL (0.60-1.20); Globulin, Blood 3.2 g/dL (2.2-4.0); Glomerular Filtration Rate >60 (60-); Glucose, Blood 192 mg/dL (70-99); Potassium, Blood 4.2 mmol/L (3.5-5.5); Sodium, Blood 134 mmol/L (136-145); Total Protein, Blood 5.6 g/dL (6.4-8.2)
--- NOTE | 2020-12-06 05:51 | NUR ---
SHIFT SUMMARY ADMITTED FOR COVID+. FULL CODE. WILL DC HOME WHEN STABLE AND USING LESS O2. CURRENTLY ON AIRVO. COLOSTOMY IN PLACE. LOVENOX IN EMAR. SOLUMEDROL IN EMAR. NODULE FOUND IN RT LOWER LUNG. HX: COPD, COLON CANCER.
--- NOTE | 2020-12-06 17:11 | NUR ---
MR. JAKE OVALLE IS ALERT AND ORIENTED X 4. DENIES PAIN. VS WNL. HE DOES NOT APPEAR TO BE IN ACUTE DISTESS. HE IS VERY PLEASANT AND COOPERATIVE. HE IS EATING MOST OF HIS MEALS AND VOIDING ADEQUATE AMOUNT OF URINE. BS WAS ELEVATED AND COVERAGE PROVIDED PER MD'S ORDERS. VS WNL. HE HAD AN UNEVENTFUL DAY. IV HEPLOCK IS UNREMARKABLE.
--- NOTE | 2020-12-07 04:14 | NUR ---
SHIFT SUMMARY ADMITTED FOR COVID+. FULL CODE. PT IS ON AIRVO 40 LPM, 60% FiO2. 1 ASSIST- BSC. PT HAS RLL NODULE WHICH WILL BE INVESTIGATED OUTPT. COLOSTOMY IN PLACE. STEROIDS ARE SCHEDULED. MELATONIN NOW AVAILABLE PRN FOR INSOMNIA. HX: COPD, COLON CANCER.
[2020-12-07 05:34] LABS: BASOPHILS ABSOLUTE AUTO 0.05 K/mm3 (0.00-0.23); BASOPHILS PERCENT AUTO 0 % (0-2); EOSINOPHILS ABSOLUTE AUTO 0.04 K/mm3 (0.00-0.68); EOSINOPHILS PERCENT AUTO 0 % (0-6); Hematocrit 42.4 % (37.0-53.0); Hemoglobin 14.1 g/dL (13.5-17.5); IMMATURE GRAN PERCENT AUTO 3 % (0-1); LYMPHOCYTES ABSOLUTE AUTO 2.81 K/mm3 (0.84-5.20); LYMPHOCYTES PERCENT AUTO 17 % (21-46); MONOCYTES ABSOLUTE AUTO 1.47 K/mm3 (0.16-1.47); MONOCYTES PERCENT AUTO 9 % (4-13); Mean Corpuscular HGB 28.4 pg (26.0-34.0); Mean Corpuscular HGB Conc 33.3 g/dL (31.5-36.5); Mean Corpuscular Volume 86 fL (80-100); Mean Platelet Volume 9.8 fL (9.1-12.4); NEUTROPHILS PERCENT AUTO 71 % (41-73); Platelet Count 276 K/mm3 (150-400); RDW Coefficient Variation 13.2 % (11.7-14.2); RDW Standard Deviation 40.9 fL (35.1-46.3); Red Blood Cell Count 4.96 M/mm3 (4.30-5.90); White Blood Cell Count 16.67 K/mm3 (4.00-11.30)
[2020-12-07 06:00] LABS: Alanine Aminotransfer (ALT/SGP 44 U/L (12-78); Albumin, Blood 2.3 g/dL (3.4-5.0); Albumin/Globulin Ratio 0.8 (0.8-1.8); Alk Phos 55 U/L (50-136); Anion Gap 6 mmol/L (6-16); Aspartate Aminotrans (AST/SGOT 23 U/L (12-37); Bilirubin, Total 0.4 mg/dL (0.1-1.0); Blood Urea Nitrogen 20 mg/dL (8-24); Bun/Creatinine Ratio 29.9 (12.0-20.0); CO2, Blood 26 mmol/L (21-32); Calcium, Blood 8.1 mg/dL (8.5-10.1); Chloride, Blood 103 mmol/L (98-108); Creatinine, Blood 0.67 mg/dL (0.60-1.20); Glomerular Filtration Rate >60 (60-); Glucose, Blood 101 mg/dL (70-99); Potassium, Blood 3.8 mmol/L (3.5-5.5); Sodium, Blood 135 mmol/L (136-145); Total Protein, Blood 5.3 g/dL (6.4-8.2)
--- NOTE | 2020-12-07 16:43 | NUR ---
THE PATIENT IS ALERT AND ORIENTED X 4. DENIES PAIN. THIS AM AT APPROX 0830, HE BECAME HYPOXIC WITH O2 SAT IN UPPER 70'S. HE REPORTS SOB. RESP THERAPIST INCREASED O2 TO 50% AND 90 FIO 2 ON BLOW-BY. NON-REBREATHER WAS ADDED. AFTER APPROX 40 MIN, HIS O2 SAT INCREASED TO UPPER 80'S TO LOW 90'S. HIS BS WAS 93 AND HE FELT SOME OF HIS CHALLENGES WAS RELATED TO LOW BS. HE WAS ABLE TO EAT BREAKFAST. AT APPROX 1030, HIS O2 LEVEL INCREASED TO UPPER 90'S AND NONREBREATHER WAS REMOVED. HE HAS TOLERATED UP TO CHAIR X 1 TODAY DURING MID AFTERNOON. HE APPEARS TO BE RESTING WELL AT THIS TIME.
[2020-12-08 05:26] LABS: BASOPHILS ABSOLUTE AUTO 0.05 K/mm3 (0.00-0.23); BASOPHILS PERCENT AUTO 0 % (0-2); EOSINOPHILS PERCENT AUTO 0 % (0-6); Hematocrit 41.4 % (37.0-53.0); Hemoglobin 13.7 g/dL (13.5-17.5); IMMATURE GRAN ABSOLUTE AUTO 0.46 K/mm3 (0.00-0.10); IMMATURE GRAN PERCENT AUTO 4 % (0-1); LYMPHOCYTES ABSOLUTE AUTO 1.08 K/mm3 (0.84-5.20); LYMPHOCYTES PERCENT AUTO 9 % (21-46); MONOCYTES PERCENT AUTO 3 % (4-13); Mean Corpuscular HGB 28.3 pg (26.0-34.0); Mean Corpuscular HGB Conc 33.1 g/dL (31.5-36.5); Mean Corpuscular Volume 86 fL (80-100); Mean Platelet Volume 10.3 fL (9.1-12.4); NEUTROPHILS PERCENT AUTO 84 % (41-73); Platelet Count 260 K/mm3 (150-400); RDW Coefficient Variation 13.3 % (11.7-14.2); RDW Standard Deviation 41.3 fL (35.1-46.3); Red Blood Cell Count 4.84 M/mm3 (4.30-5.90); White Blood Cell Count 12.09 K/mm3 (4.00-11.30)
[2020-12-08 05:53] LABS: Alanine Aminotransfer (ALT/SGP 47 U/L (12-78); Albumin, Blood 2.4 g/dL (3.4-5.0); Albumin/Globulin Ratio 0.8 (0.8-1.8); Alk Phos 55 U/L (50-136); Anion Gap 6 mmol/L (6-16); Aspartate Aminotrans (AST/SGOT 12 U/L (12-37); Bilirubin, Total 0.4 mg/dL (0.1-1.0); Blood Urea Nitrogen 18 mg/dL (8-24); Bun/Creatinine Ratio 28.9 (12.0-20.0); CO2, Blood 27 mmol/L (21-32); Calcium, Blood 8.3 mg/dL (8.5-10.1); Chloride, Blood 102 mmol/L (98-108); Creatinine, Blood 0.62 mg/dL (0.60-1.20); Glomerular Filtration Rate >60 (60-); Glucose, Blood 182 mg/dL (70-99); Potassium, Blood 4.6 mmol/L (3.5-5.5); Sodium, Blood 135 mmol/L (136-145); Total Protein, Blood 5.4 g/dL (6.4-8.2)
--- NOTE | 2020-12-08 06:43 | NUR ---
PATIENT IS ALERT AND ORIENTED X4. COOPERATIVE AND PLEASANT WITH CARE. NO COMPLAINTS OF PAIN OR INCREASING SOB OR AIR HUNGER. CURRENTLY ON AIRVO AT 45% AND KEEPING 02 IN MITESH 90'S. COLOSTOMY PRODUCING SOFT BROWN STOOL.
--- NOTE | 2020-12-08 15:52 | NUR ---
Per chart review with Dr. Loredo, pt is COVID positive and still on high flow oxygen. There is no d/c plan at this time. -benjamin
--- NOTE | 2020-12-08 16:51 | NUR ---
MR JAKE OVALLE IS ALERT AND ORIENTED X 4. DENIES PAIN. SOB WITH EXERTION. HE IS VERY PLEASANT AND FRIENDLY. HE HAS BEEN UP WALKING AROUND HIS BED FREQUENTLY AND SITTING UP TO THE CHAIR TODAY. O2 SAT LOWER 90'S MOSTLY WITH OCCASSIONALY READING IN UPPER 90'S. COLOSTOMY DRSG CHANGED. VOIDING WITHOUT DIFFICULTY. HE HAD UNEVENTFUL EVENING.
--- NOTE | 2020-12-09 05:12 | NUR ---
PATIENT IS ALERT AND ORIENTED X3. DENIES PAIN OR ANY DISCOMFORT. LEFT HAND IV LINE FLUSHED WITHOUT DIFFICULTY. PATIENTS BLOOD SUGAR WAS 154. PATIENT DID NOT REQUIRE HUMOLOG INSULIN. MD NOTIFIED OF BLOOD SUGAR OF 154, ASKED TO HOLD HIS SEMGLEE. PATIENT HAS HISTORY OF COLON CANCER, COLOSTOMY BAG CHANGED. PATIENT SLEPT WELL THROUGH OUT THE NIGHT NO COMPLIAINS VOICED.
[2020-12-09 05:32] LABS: BASOPHILS ABSOLUTE AUTO 0.05 K/mm3 (0.00-0.23); BASOPHILS PERCENT AUTO 0 % (0-2); EOSINOPHILS PERCENT AUTO 0 % (0-6); Hematocrit 41.1 % (37.0-53.0); Hemoglobin 13.5 g/dL (13.5-17.5); IMMATURE GRAN ABSOLUTE AUTO 0.44 K/mm3 (0.00-0.10); IMMATURE GRAN PERCENT AUTO 3 % (0-1); LYMPHOCYTES ABSOLUTE AUTO 1.43 K/mm3 (0.84-5.20); LYMPHOCYTES PERCENT AUTO 9 % (21-46); MONOCYTES ABSOLUTE AUTO 0.53 K/mm3 (0.16-1.47); MONOCYTES PERCENT AUTO 4 % (4-13); Mean Corpuscular HGB 28.2 pg (26.0-34.0); Mean Corpuscular HGB Conc 32.8 g/dL (31.5-36.5); Mean Corpuscular Volume 86 fL (80-100); Mean Platelet Volume 10.2 fL (9.1-12.4); NEUTROPHILS ABSOLUTE AUTO 12.78 K/mm3 (1.96-9.15); NEUTROPHILS PERCENT AUTO 84 % (41-73); Platelet Count 251 K/mm3 (150-400); RDW Coefficient Variation 13.4 % (11.7-14.2); RDW Standard Deviation 41.8 fL (35.1-46.3); Red Blood Cell Count 4.78 M/mm3 (4.30-5.90); White Blood Cell Count 15.23 K/mm3 (4.00-11.30)
[2020-12-09 06:13] LABS: Alanine Aminotransfer (ALT/SGP 38 U/L (12-78); Albumin, Blood 2.4 g/dL (3.4-5.0); Albumin/Globulin Ratio 0.8 (0.8-1.8); Alk Phos 54 U/L (50-136); Anion Gap 6 mmol/L (6-16); Aspartate Aminotrans (AST/SGOT 10 U/L (12-37); Bilirubin, Total 0.4 mg/dL (0.1-1.0); Blood Urea Nitrogen 17 mg/dL (8-24); Bun/Creatinine Ratio 25.9 (12.0-20.0); CO2, Blood 29 mmol/L (21-32); Calcium, Blood 8.2 mg/dL (8.5-10.1); Chloride, Blood 101 mmol/L (98-108); Creatinine, Blood 0.66 mg/dL (0.60-1.20); Globulin, Blood 2.9 g/dL (2.2-4.0); Glomerular Filtration Rate >60 (60-); Glucose, Blood 165 mg/dL (70-99); Potassium, Blood 4.3 mmol/L (3.5-5.5); Sodium, Blood 136 mmol/L (136-145); Total Protein, Blood 5.3 g/dL (6.4-8.2)
--- NOTE | 2020-12-09 09:15 | NUR ---
(HOSPITAL SYSTEM WAS DOWN YESTERDAY, THIS NOTE IS FOR 12/08/20) Per chart review with Dr. Loredo, pt is COVID positive and still on high flow oxygen. There is no d/c plan at this time. -benjamin
--- NOTE | 2020-12-09 14:44 | NUR ---
Per chart review with Dr. Loredo, pt still on high flow Airvo, working with PT due to deconditioning as a result of COVID. No d/c plan at this time. ([email or web address], 2:44 PM)
--- NOTE | 2020-12-09 16:27 | NUR ---
SHIFT SUMMARY PT TITRATED ON THE AIRVO TODAY FROM 50LPM TO 45LPM. PT STATES HE GETS MORE SOB WITH EXERTION SINCE THE TITRATION, BUT HIS O2 SATS HAVE BEEN STABLE IN THE HIGH 80S-LOW 90S. NO OTHER ACUTE CHANGES IN ASSESSMENT AT THIS TIME. VS REVIEWED. PT RESTING IN BED, RECIEVING A BREATHING TREATMENT. CALL LIGHT IN REACH.
--- NOTE | 2020-12-09 17:46 | NUR ---
INCREASE IN O2 FOR MEALTIME PT SATS DROPPING WHEN HE SAT UP AND STARTED EATING TO 77%. AIRVO SETTING INCREASED TO 55LPM TO HELP ASSIST THE PT WHILE EATING.
[2020-12-10 05:02] LABS: BASOPHILS ABSOLUTE AUTO 0.02 K/mm3 (0.00-0.23); BASOPHILS PERCENT AUTO 0 % (0-2); EOSINOPHILS ABSOLUTE AUTO 0.01 K/mm3 (0.00-0.68); EOSINOPHILS PERCENT AUTO 0 % (0-6); Hematocrit 38.4 % (37.0-53.0); Hemoglobin 12.9 g/dL (13.5-17.5); IMMATURE GRAN ABSOLUTE AUTO 0.31 K/mm3 (0.00-0.10); IMMATURE GRAN PERCENT AUTO 2 % (0-1); LYMPHOCYTES ABSOLUTE AUTO 0.94 K/mm3 (0.84-5.20); LYMPHOCYTES PERCENT AUTO 7 % (21-46); MONOCYTES ABSOLUTE AUTO 0.47 K/mm3 (0.16-1.47); MONOCYTES PERCENT AUTO 4 % (4-13); Mean Corpuscular HGB 28.8 pg (26.0-34.0); Mean Corpuscular HGB Conc 33.6 g/dL (31.5-36.5); Mean Corpuscular Volume 86 fL (80-100); NEUTROPHILS PERCENT AUTO 87 % (41-73); Platelet Count 201 K/mm3 (150-400); RDW Coefficient Variation 13.6 % (11.7-14.2); RDW Standard Deviation 41.9 fL (35.1-46.3); Red Blood Cell Count 4.48 M/mm3 (4.30-5.90); White Blood Cell Count 13.55 K/mm3 (4.00-11.30)
--- NOTE | 2020-12-10 05:32 | NUR ---
PATIENT IS ALERT AND ORIENTED. DENIES PAIN OR ANY DISCOMFORT. PATIENT CONTINUES ON AIRVO 55LPM, WITH 02 SAT 99%. DENIES SOB OR ANY DISTRESS. SLEEP WELL THROUGH OUT THE NIGHT. VITAL SIGNS WNL.
[2020-12-10 05:47] LABS: Alanine Aminotransfer (ALT/SGP 37 U/L (12-78); Albumin, Blood 2.4 g/dL (3.4-5.0); Albumin/Globulin Ratio 0.8 (0.8-1.8); Alk Phos 60 U/L (50-136); Anion Gap 8 mmol/L (6-16); Aspartate Aminotrans (AST/SGOT 9 U/L (12-37); Bilirubin, Total 0.4 mg/dL (0.1-1.0); Blood Urea Nitrogen 14 mg/dL (8-24); Bun/Creatinine Ratio 22.2 (12.0-20.0); CO2, Blood 27 mmol/L (21-32); Calcium, Blood 8.1 mg/dL (8.5-10.1); Chloride, Blood 100 mmol/L (98-108); Creatinine, Blood 0.63 mg/dL (0.60-1.20); Globulin, Blood 2.9 g/dL (2.2-4.0); Glomerular Filtration Rate >60 (60-); Glucose, Blood 193 mg/dL (70-99); Potassium, Blood 4.3 mmol/L (3.5-5.5); Sodium, Blood 135 mmol/L (136-145); Total Protein, Blood 5.3 g/dL (6.4-8.2)
--- NOTE | 2020-12-10 09:17 | NUR ---
standing at edge of bed, steady gait, using bsu, call llight with in reach, airvo inplace
--- NOTE | 2020-12-10 14:16 | NUR ---
91% AIRVO 55L 90%, NO DISTRESS, SLEEPING
--- NOTE | 2020-12-10 14:44 | NUR ---
per chart review with Dr. Loredo, pt has not progressed. There is question if the pt knows about his lung mass. Will look to see if he has been told. Pt is still on High flow Airvo. Unfortunately there is no facility that will take the patient with his O2 needs. -benjamin
--- NOTE | 2020-12-10 18:22 | NUR ---
MAKES NEEDS KNOWN, SOB WITH EXERTION, AIRVO INPLACE, PATIETN FUSTRATED FROM A LONG ADMISSION, VS REVEIWED, HELD AM LOPRESSOR FOR SBP 108, CALL LIGHT WITH IN REACH, NO CHANGES
--- NOTE | 2020-12-11 13:05 | NUR ---
per chart review with Dr. Loredo, pt had slight improvement over night. Pt is aware of the mass in his lung. Dr. Loredo is contemplating the idea of seeing if the pt could be accepted at [facility] or [facility] that could help with treatment of the lung mass. -benjamin
--- NOTE | 2020-12-11 18:20 | NUR ---
makes needs known, not emotional or crying this afternoon, brought a suitcase for patient, security reveiwed the bag sanding supervisor aware, uncontrolled bs due to food being brought in from home, vs reviewed, encouraged deep breathing, call light with in reach, wctm
--- NOTE | 2020-12-11 18:24 | NUR ---
AT 1430 TODAY 12-11-2020 PT REQUESTED SPOUSE BRING NEW BELONGINGS AND GIVE HER HIS DIRTY CLOTHES. PT DISCLOSED TO ME THAT HIS SPOUSE WAS BRINGING HIM ALCOHOL. I NOTIFIED PT NURSE, MY CHARGE NURSE AND NURSE CALL CENTRE SUPERVISOR WELL SECURITY. WHEN PT SPOUSE ARRIVED I TOOK THE BELONGINGS FROM THE PT DOWNSTAIRS WHERE SECURITY MET ME TO GO THROUGH THE ITEMS FROM THE SPOUSE. SPOUSE GOT AGITATED WHEN SECURITY REQUESTED TO GO THROUGH THE SUITCASE. SECURITY FOUND ALCOHOL AND REFUSED TO ALLOW IT IN. SPOUSE GOT MORE UPSET AND MADE ALLEGATIONS THAT THE PT STATED HE WAS NOT BEING TAKEN CARE OF. SPOUSE STATED PT TOLD HER THAT HE HAD NOT BEEN SHOWERED SINCE ADMISSION, HIS SHEETS WERE NOT CHANGED FOR MORE THAN 8 DAYS AND ONLY BECAUSE SHE CALLED AND COMPLAINED. I ADDRESSED THE DAUGHTERS WHO WERE NOT AGITATED. I TOLD THEM THAT I PERSONALLY HAVE OFFERED A BEDBATH AND WIPES TO THE PT BECUASE THEY ARE ON AIRVO THAT NEEDS TO BE PLUGGED IN TO THE WALL AND THAT THE PT IS NOT SUSTAINING WELL ENOUGH TO COME OFF TO GET IN THE SHOWER. PT HAS REFUSED TO USE THE WIPES OR TAKE A BEDBATH. I HAVE PERSONALLY CHANGED THE BEDDING WELL. I NOTIFIED THE NURSING STAFF OF THE FINDINGS OF THE SUITCASE THE SPOUSE BROUGHT AND OF THE INCIDENT.
--- NOTE | 2020-12-12 06:18 | NUR ---
SHIFT SUMMARY PATIENT ALERT AND ORIENTED. NO COMPLAINTS OF PAIN. GET SHORT OF BREATH UPON EXHERTION. CONTINUES ON AIRVO, MONITORED BY RT. CALL LIGHT WITHIN REACH. REPORT GIVEN TO ONCOMING RN.
--- NOTE | 2020-12-12 16:44 | NUR ---
PT CBG 97. CALLED DR TO DISCUSS FLAT 20 UNITS. ORDERS TO REDUCE TO 10 U AT DINNER. REEVAL TOMORROW.
--- NOTE | 2020-12-12 18:24 | NUR ---
PT QUITE PLEASANT AND TALKATIVE TODAY. DID TRIAL HIM WITH THE OXIMIZER AT 15L TODAY. WAS OKAY FOR ABOUT 2 HRS. HAD TO PUT ON AIRVO AGAIN AT DINNER TIME. CONTINUES TO BE ON AT THIS TIME. NO NEW CONCERNS NOTED. BED IN LOW POSITION, CALL LITE IN REACH, CALLS APPROP
--- NOTE | 2020-12-13 04:48 | NUR ---
NO ACUTE CHANGES OR SIGNIFICANT EVENTS OVERNIGHT.COLOSTOMY BAG FUNCTIONING FINE. NO ISSUES WITH IT OVERNIGHT. DENIES PAIN. DENIES NAUSEA. VITAL SIGNS STABLE.
[2020-12-13 07:41] LABS: BASOPHILS ABSOLUTE AUTO 0.03 K/mm3 (0.00-0.23); BASOPHILS PERCENT AUTO 0 % (0-2); EOSINOPHILS ABSOLUTE AUTO 0.03 K/mm3 (0.00-0.68); EOSINOPHILS PERCENT AUTO 0 % (0-6); Hematocrit 41.5 % (37.0-53.0); Hemoglobin 13.8 g/dL (13.5-17.5); IMMATURE GRAN ABSOLUTE AUTO 0.39 K/mm3 (0.00-0.10); IMMATURE GRAN PERCENT AUTO 4 % (0-1); LYMPHOCYTES PERCENT AUTO 9 % (21-46); MONOCYTES ABSOLUTE AUTO 0.45 K/mm3 (0.16-1.47); MONOCYTES PERCENT AUTO 4 % (4-13); Mean Corpuscular HGB 28.6 pg (26.0-34.0); Mean Corpuscular HGB Conc 33.3 g/dL (31.5-36.5); Mean Corpuscular Volume 86 fL (80-100); Mean Platelet Volume 9.4 fL (9.1-12.4); NEUTROPHILS ABSOLUTE AUTO 9.18 K/mm3 (1.96-9.15); NEUTROPHILS PERCENT AUTO 83 % (41-73); Platelet Count 141 K/mm3 (150-400); RDW Coefficient Variation 13.8 % (11.7-14.2); Red Blood Cell Count 4.83 M/mm3 (4.30-5.90); White Blood Cell Count 11.08 K/mm3 (4.00-11.30)
--- NOTE | 2020-12-13 08:09 | NUR ---
ISOLATION DC Patient has been here for > 21 days. Remains on Airvo, desats with activity. Discussed with Infection Control Pham, patient ok to remove isolation. Dr. Loredo on board as well.
[2020-12-13 09:00] LABS: Alanine Aminotransfer (ALT/SGP 40 U/L (12-78); Albumin, Blood 2.3 g/dL (3.4-5.0); Albumin/Globulin Ratio 0.7 (0.8-1.8); Alk Phos 73 U/L (50-136); Anion Gap 7 mmol/L (6-16); Aspartate Aminotrans (AST/SGOT 17 U/L (12-37); Bilirubin, Total 0.4 mg/dL (0.1-1.0); Blood Urea Nitrogen 21 mg/dL (8-24); Bun/Creatinine Ratio 30.1 (12.0-20.0); CO2, Blood 27 mmol/L (21-32); Calcium, Blood 8.1 mg/dL (8.5-10.1); Chloride, Blood 100 mmol/L (98-108); Globulin, Blood 3.3 g/dL (2.2-4.0); Glomerular Filtration Rate >60 (60-); Glucose, Blood 173 mg/dL (70-99); Magnesium, Blood 2.3 mg/dL (1.6-2.4); Phosphorus, Blood 3.6 mg/dL (2.5-4.9); Potassium, Blood 4.3 mmol/L (3.5-5.5); Sodium, Blood 134 mmol/L (136-145); Total Protein, Blood 5.6 g/dL (6.4-8.2)
--- NOTE | 2020-12-13 17:59 | NUR ---
Shift Summary A/Ox4, pleasant and cooperative. Remains on same Airvo settings of 60L 70%FiO2. Up in room independently, having snacks at bedside. Ostomy pouch changed today. Appetite is good. In good spirits. WCTM.
--- NOTE | 2020-12-14 03:59 | NUR ---
PATIENT REMAINS ON AIRVO AT 60 LITERS AND 70%. UP WITH MINIMAL STAND BY ASSIST. STANDS AT BEDSIDE INDEPENDENTLY TO USE URINAL. COLOSTOMY STOMA AND SEAL AROUND BAG INTACT AND PATIENT IS PRODUCING SOFT BROWN STOOL. PATIENT GETS EXTREMELY ANXIOUS WHEN HE FEELS SOB, AND IS DIFFICULT TO REDIRECT TO RESOLVE HIS BREATHING ISSUES. 02 DROPPED INTO HIGH 70'S THIS EVENING WHEN PATIENT BRIEFLY REMOVED AIRVO TO CHANGE HIS SHIRT. IT TOOK HIM APPROX 7-8 MINUTES TO RECOVER TO THE HIGH 80'S.
--- NOTE | 2020-12-14 15:41 | NUR ---
NO IV ACCESS/OCEAN SPRAY PATIENT REQ TO DC IV AND SOMETHING FOR DRY NOSE/CONGESTION. T.O. FROM DR. MEADOWS FOR OCEAN SPRAY Q1H PRN FOR CONGESTION AND OK TO HAVE NO IV ACCESS ORDERED.
--- NOTE | 2020-12-14 17:44 | NUR ---
Shift Summary Attempted shower with 15L oximizer, desatted to 75% while sitting on shower chair. Patient appears dyspneic, shower cancelled and given bedbath instead. Airvo 45L 80% FiO2; at rest patient sats 90-95%. Nasal spray PRN at bedside. No iv access per order. No new concerns. WCTM.
--- NOTE | 2020-12-15 17:57 | NUR ---
SHIFT SUMMARY UP INDEPENDENTLY; DANGLED, AMBULATED TODAY, AND SAT UP IN CHAIR. TOLERATING WEANING; NOW AT 40L, 60%. POOR SLEEP MD BIN PROVIDED NEW ORDERS FOR TRAZADONE TONIGHT. GOOD PO INTAKE.
--- NOTE | 2020-12-16 04:36 | NUR ---
SHIFT SUMMARY: AOX3, INDEPENDENT IN THE ROOM. ABLE TO MOVE ABOUT NEAR THE BED IN SMALL INCREMENTS W/OUT DYPNEA. DESATED ONCE AFTER BREATHING EXERCISES AND UP TO BSC. AIRVO CURRENTLY 40L FIO2 60%. SATS HOLDING 92-94%. NO COUGH OR CONGESTION. LS DIMINISHED. BS WAS 147, WITHHELD LONG ACTING. TRAZADONE AND MELATONIN WAS ADMINISTERED, ALLOWING FOR SEVERAL HOURS ASLEEP BEFORE AWAKING. OSTOMY CONTINUES TO BE PATENT WITH SOFT BROWN FECES. VS WNL FOR PATIENT AND TREATMENTS. CALL LIGHT REMAINS IN REACH. WILL CONTINUE TO MONITOR.
--- NOTE | 2020-12-16 11:19 | NUR ---
Per chart review with Dr. Zazueta, pt d/c is home O2 eval vs transfer to facility that could also treat his lung mass. Pt's O2 needs are too high for discharge at this time. -benjamin ([email or web address], 11:19 AM)
--- NOTE | 2020-12-16 17:31 | NUR ---
SHIFT SUMMARY 70YR MALE ADMITTED WITH ACUTE RESP FAILURE DUE TO COVID 19. PT HAS HX OF COLON CANCER AND COLOSTOMY. PT IS PLEASANT AND COOPERATIVE AND UP IND IN THE ROOM. PT REMAINED ON AIRVOW TODAY W/ MULTIPLE ATTEMPTS TO TITRATE DOWN ON . PT CURRENTLY AT 35L/60% FI02. PT IS VERY MOTIVATED TO TITRATE O2 DOWN SO HE CAN GO HOME BUT DOES DESAT FREQUENTLY WITH ACTIVITY. NO OTHER ACUTE CHANGES THIS SHIFT.
--- NOTE | 2020-12-16 22:39 | NUR ---
ASSUMED CARE. AOX3, WAS UP WALKING AROUND AT START OF SHIFT WHEN ASSESSMENT WAS COMPLETED. WAS HYPOXIC AT 82% AT WHICH HE WAS NOT CATCHING UP DISPITE BREATHING TREATMENT AND REST. AIRVO WAS SET AT 35/50 BUT RT HAD TO INCREASE BACK TO 45/60. DISCUSSED BREATHING DEEPER SHE CONTINUES TO BREATH VERY SHALLOW. HAD HIM DEMENSTRATE ON BREATHING TREATMENT. IT IS VRY DIFFICULT FOR HIM TO TAKE A GOOD DEEP BREATH IN. ENCOURAGED MORE IS AND FLUTTER VALVE USE. MEDS WERE GIVEN. SATS ARE BACK UP TO 92%. HE IS CURRENTLY RESTING IN BED. CALL LIGHT IN REACH.
--- NOTE | 2020-12-17 06:51 | NUR ---
SHIFT SUMMARY: UNCHANGED LUNG SOUNDS. AIRVO CURRENTLY ON 35L / 64% FIO2. HE DID HAVE TO BE TURNED UP TO 45L 75% FIO2 AFTER AMBULATING IN ROOM AND TALKING ON THE PHONE WHICH DROPPED HIS SATS DOWN TO 83% AND WAS NOT RECOVERING. DISCUSSED BREATHING TECHNIQUES IT WAS NOTICED HE IS A SHALLOW BREATHER. UNABLE TO TAKE FULL DEEP BREATHS. HAD HIM DEMENSTRATE WHILE ON BREATHING TREATMENT. STATES WHEN HE TAKES A DEEP HE CAN ONLY GO SO FAR THEN IT GET CAUGHT. ENCOURAGED IS USE, AND FLUTTER VALVE. VS WNL. AFEBRILE. REPORT GIVEN TO DAY SHIFT.
--- NOTE | 2020-12-17 10:54 | NUR ---
per chart review with Dr. Zazueta, no d/c plan at this time. ([email or web address], 10:53 AM)
--- NOTE | 2020-12-17 17:10 | NUR ---
SHIFT SUMMARY PT IS AOX4. PT IS ON AIRVO 35 L AT 65%. PT DENIES PAIN, N/V, SOB. NO PROCEDURES DONE THIS SHIFT. PT IS INDEPENDENT IN ROOM. PLAN IS TO WEAN O2. APPETITE IS GOOD. COLOSTOMY BAG CHANGED BY PENSIONHOLDER INFORMATION CLERK. PT IS IN BED, CALL LIGHT IN REACH, LOW POSITION.
--- NOTE | 2020-12-18 05:10 | NUR ---
SHIFT SUMMARY- PT. A&OX4, PLEASANT AND COOPERATIVE WITH CARE. HAD NO COMPLAINTS T/O THE NIGHT. ON AIRVO 30L @46% SATS MAINTAINED >90. PT. SLEPT T/O THE NIGHT, NO APPARENT DISTRESS NOTED, VSS. CALL LIGHT WITHIN REACH AND SIDE RAILS UPX2. WILL CONT TO MONITOR.
--- NOTE | 2020-12-18 17:05 | NUR ---
SHIFT SUMMARY PT IS AOX4. PT DENIES PAIN, N/V, SOB. PT SATS ARE 87-94% THIS SHIFT WHILE ON 15 L HFNC WITH HUMIDITY. PT APPETITE IS GOOD. NO PROCEDURES DONE THIS SHIFT. PT IS INDEPENDENT IN ROOM. PT IS IN BED, CALL LIGHT IN REACH, LOW POSITION.
--- NOTE | 2020-12-18 17:35 | NUR ---
Per chart review with Dr. Zazueta, pt. not yet appropriate for discharge due high level of Oxygen need. Pt. has been weaning down. Currently at [address] Mr. Kerr as been working with PT daily. He is likely to discharge home with no caregiver or HH needs. Anticipate needs at time of discharge to include: Home O2 eval, Oxygen through [facility] F/U within 5-7 days with PCP.
--- NOTE | 2020-12-19 04:47 | NUR ---
SHIFT SUMMARY- NO ACUTE EVENTS OVERNIGHT. PT. ON 15L HIGH FLOW NC, TOLERATING WELL AND SATS MAINTAINED. PT. ASLEEP T/O THE NIGHT, NO APPARENT DISTRESS NOTED. DENIED NEEDS. CALL LIGHT WITHIN REACH AND SIDE RAILS UPX2. WILL CONT TO MONITOR.
[2020-12-19 04:58] LABS: Hematocrit 41.7 % (37.0-53.0); Hemoglobin 13.9 g/dL (13.5-17.5); Mean Corpuscular HGB Conc 33.3 g/dL (31.5-36.5); Mean Corpuscular Volume 87 fL (80-100); Platelet Count 165 K/mm3 (150-400); RDW Coefficient Variation 14.2 % (11.7-14.2); White Blood Cell Count 11.43 K/mm3 (4.00-11.30)
[2020-12-19 05:36] LABS: BAND PERCENT MAN 6 % (0-8); BASOPHILS PERCENT MAN 0 % (0-2); EOSINOPHILS ABSOLUTE MAN 0.11 K/mm3 (0.00-0.68); EOSINOPHILS PERCENT MAN 1 % (0-6); LYMPHOCYTES ABSOLUTE MAN 1.14 K/mm3 (0.84-5.20); LYMPHOCYTES PERCENT MAN 10 % (21-46); METAMYELOCYTE ABSOLUTE MAN 0.22 K/mm3 (0.00-0.00); METAMYELOCYTE PERCENT MAN 2 % (0-0); MONOCYTES ABSOLUTE MAN 1.25 K/mm3 (0.16-1.47); MONOCYTES PERCENT MAN 11 % (4-13); MYELOCYTE ABSOLUTE MAN 0.11 K/mm3 (0.00-0.00); MYELOCYTE PERCENT MAN 1 % (0-0); NEUTROPHILS ABSOLUTE MAN 8.57 K/mm3 (1.96-9.15); SEG NEUTROPHILS PERCENT MAN 69 % (41-73); TOTAL CELLS COUNTED 100
[2020-12-19 05:40] LABS: Alanine Aminotransfer (ALT/SGP 53 U/L (12-78); Albumin, Blood 2.5 g/dL (3.4-5.0); Albumin/Globulin Ratio 0.8 (0.8-1.8); Alk Phos 69 U/L (50-136); Anion Gap 7 mmol/L (6-16); Aspartate Aminotrans (AST/SGOT 18 U/L (12-37); Bilirubin, Total 0.4 mg/dL (0.1-1.0); Blood Urea Nitrogen 22 mg/dL (8-24); Bun/Creatinine Ratio 28.7 (12.0-20.0); C-REACTIVE PROTEIN, EXT RANGE <0.290 mg/dL (0.000-0.300); CO2, Blood 28 mmol/L (21-32); Calcium, Blood 8.2 mg/dL (8.5-10.1); Chloride, Blood 98 mmol/L (98-108); Creatinine, Blood 0.77 mg/dL (0.60-1.20); Ferritin, Serum 212 ng/mL (26-388); Globulin, Blood 3.1 g/dL (2.2-4.0); Glomerular Filtration Rate >60 (60-); Glucose, Blood 241 mg/dL (70-99); Lactate Dehydrogenase (Ld),Bld 311 U/L (100-240); Potassium, Blood 4.9 mmol/L (3.5-5.5); Sodium, Blood 133 mmol/L (136-145); Total Protein, Blood 5.6 g/dL (6.4-8.2)
--- NOTE | 2020-12-19 11:37 | NUR ---
per chart review with Dr. Lizama, no plan for d/c at this time. -benjamin (, 11:36 AM)
--- NOTE | 2020-12-19 17:49 | NUR ---
SUMMARY PT SITTING UP IN BED EATING DINNER, PT HAS BEEN INDEPENDENT IN THE ROOM, PT WAS ON 15L THIS AM, TITRATED DOWN SLOWLY T/O THE DAY, WAS BRIEFLY ON 6L, HAS BEEN TITRATED UP TO 8L AT THIS TIME, NO S/S DISTRESS, PT HAS BEEN PLEASANT AND COOPERATIVE T/O THE DAY, VSS, WILL CONT TO MONITOR
--- NOTE | 2020-12-20 18:17 | NUR ---
PATIENT IS ALERT AND ORIENTED AND COOPERATIVE WITH CARE. HE IS ON 13L O2 VIA HIGHFLOW NC WITH OXYGEN SATURATION OF 94%. THE PATIENT'S COLOSTOMY BAG WAS EMPTIED AND CHANGED TODAY. HE CALLS APPROPRIATELY. WILL CONTINUE TO MONITOR
--- NOTE | 2020-12-21 04:40 | NUR ---
CAMP RECREATION SPECIALIST SUMMARY PT A/O X4, INDEPENDENT IN ROOM. ON 14L VIA HIGH FLOW NC SATTING IN THE LOW 90'S. SLEPT WELL TONIGHT. USES URINAL INDEPENDENTLY. DENIES PAIN. USES CALL LIGHT APPROPRIATELY. NO ACUTE CHANGES , CALL LIGHT WITHIN REACH, WILL CONTINUE TO MONITOR.
--- NOTE | 2020-12-21 18:08 | NUR ---
Resumed care at 7am . Patient is alert and oriented x3 , able to make needs known . Denies any pain. Patient continue on 8-10 liters oxygen with sp02 at 89 to 94 % ,no SOB noted. One person assist with ADLS. Vital signs are stable. Insulin coverage was done , no adverse effects. Continue to monitor.
--- NOTE | 2020-12-22 06:14 | NUR ---
SHIFT SUMMARY PT AAOX4. ADMITTED FOR COVID 19+. ON HIGHFLOW ABLE TO TITRATE PT FROM 8L TO 4L DURING THIS SHIFT. SATS 95% NO SIGNIFICANT CHANGES DURING THIS SHIFT. CALL LIGHT WITHIN REACH. PT ABLE TO MAKE NEEDS KNOWN. PT VOICES NO CONCERNS AT THIS TIME.
[2020-12-22] MEDS ORDERED: ACET325 PO (11:39)
[2020-12-22] MEDS ORDERED: ASCORBIC ACID500 MG PO (11:40)
[2020-12-22] MEDS ORDERED: CITA20 PO (11:41)
[2020-12-22] MEDS ORDERED: BASAGLAR K100 UNIT/6 SC (11:42)
[2020-12-22] MEDS ORDERED: METPRE4 PO (11:45)
[2020-12-22] MEDS ORDERED: TRAZ50 PO (11:46)
[2020-12-22] MEDS ORDERED: Vitamin D1000 UNI1 PO (11:47)
[2020-12-22] MEDS ORDERED: BUDE.25 INH (11:49)
--- NOTE | 2020-12-22 11:55 | NUR ---
Pt is stable for discharge home. will be coming to get him around 3pm today. Was able to order Home O2, nebulizer w/medications, CPAP mask which allows O2 to bleed in, new CPAP machine because pt's machine is greater that 5 years old. Ordered Budesonide and Duoneb to be delivered with the machines. Pt will need insulin education, as his medications have been adjusted significantly since being in the hospital and various treatments for COVID. Pt will need a PET scan to be completed in an out pt setting. Pt would benefit with following up with hospitalist vs. his PCP ([email or web address], 11:55 AM)
--- NOTE | 2020-12-22 15:12 | NUR ---
SUMMARY/DISCHARGE PT DISCHARGED TO HOME, INSTRUCTIONS GIVEN TO PT AND HIS WHO IS HIS REPAIR SERVICE DISPATCHER, PT AND SPOUSE VERBALIZED UNDERSTANDING OF DISCHARGE INSTRUCTIONS, PT TAKEN OUT SAFELY VIA WHEELCHAIR
== END 2020-12-22 15:03 | disposition home or self-care (01) | DRG 177 ==
LOC: ER 18:32 → MEDS 21:40 → ENPENDDIS 12-22 11:51 → MEDS 12-22 15:03
PROVIDERS: Emergency Medicine; Family Medicine; Internal Medicine; Internal Medicine Gastroenterology; Student in an Organized Health Care Education/Training Program; ADMIT Hospitalist
PROC: 5A09457 Assistance with Respiratory Ventilation, 24-96 Consecutive Hours, Continuous Positive Airway Pressure (ICD-10-PCS; principal; 2020-11-19)
PROC: 8E0ZXY6 Isolation (ICD-10-PCS; 2020-11-19)
PROC: 3E0333Z Introduction of Anti-inflammatory into Peripheral Vein, Percutaneous Approach (ICD-10-PCS; 2020-11-19)
PROC: XW033E5 Introduction of Remdesivir Anti-infective into Peripheral Vein, Percutaneous Approach, New Technology Group 5 (ICD-10-PCS; 2020-11-19)
PROC: 5A0955A Assistance with Respiratory Ventilation, Greater than 96 Consecutive Hours, High Flow/Velocity Cannula (ICD-10-PCS; 2020-12-05)
DX: U07.1 COVID-19 (principal); J12.82 Pneumonia due to coronavirus disease 2019; J96.01 Acute respiratory failure with hypoxia; E87.1 Hypo-osmolality and hyponatremia; C34.31 Malignant neoplasm of lower lobe, right bronchus or lung; E11.65 Type 2 diabetes mellitus with hyperglycemia; T38.0X5A Adverse effect of glucocorticoids and synthetic analogues, initial encounter; I10 Essential (primary) hypertension; E78.5 Hyperlipidemia, unspecified; E11.42 Type 2 diabetes mellitus with diabetic polyneuropathy; I25.10 Atherosclerotic heart disease of native coronary artery without angina pectoris; Z93.3 Colostomy status; J43.9 Emphysema, unspecified; F10.10 Alcohol abuse, uncomplicated; K21.9 Gastro-esophageal reflux disease without esophagitis; F41.8 Other specified anxiety disorders; G47.00 Insomnia, unspecified; Z79.82 Long term (current) use of aspirin; I25.2 Old myocardial infarction; Z79.84 Long term (current) use of oral hypoglycemic drugs; Z79.899 Other long term (current) drug therapy; Z85.038 Personal history of other malignant neoplasm of large intestine; Z90.49 Acquired absence of other specified parts of digestive tract; Z90.89 Acquired absence of other organs; Z98.890 Other specified postprocedural states; Z87.891 Personal history of nicotine dependence
CPT/HCPCS: 36415; 71045; 71260; 80053; 80069; 82728; 82947; 83036; 83615; 83735; 84100; 84145; 85025; 85379; 86140; 86141; 93005; 93010; 94640; 94660; 94760; 94761; 94762; 96365-59; 96375-59; 97110; 97162; 97530; 99285-25; A9270; J0456; J1100; J1650; J1815; J2543; J2920; J2930; J7050; J7120; J7509; Q9967

== ENCOUNTER → 2022-11-15 | Outpatient (CLI) | payer MEDICARE ==
[~2022-11-15] MED LIST changes: +ACET325 PO; +ASCORBIC ACID500 MG PO; +ATOR40TA PO; +BASAGLAR K100 UNIT/6 SC; +BUDE.25 INH; +CITA20 PO; +GLIP10ER PO; +METPRE4 PO; +SITA100T2 PO; +TRAZ50 PO; +Vitamin D1000 UNI1 PO
== END ==
LOC: LAB SHORT 09:26 → LAB 09:26 → PLD 09:26
DX: D17.0 Benign lipomatous neoplasm of skin and subcutaneous tissue of head, face and neck (principal)
CPT/HCPCS: 88305